=== PATIENT | male | born 1990 | race Caucasian/White ===

== ENCOUNTER 2023-03-04 15:49 | Emergency (ER) | payer BC ==
[~2023-03-04] VITALS: Ht 190 cm; Wt 107.0 kg
[2023-03-04 16:36] LABS: BASOPHILS % (AUTO) 0 % (0-10); EOSINOPHILS % (AUTO) 0 % (0-10); HEMATOCRIT 47 % (40-54); HEMOGLOBIN 16.8 g/dL (13.3-17.7); LYMPHOCYTES # (AUTO) 1.9 10^3/uL (1.0-4.0); LYMPHOCYTES % (AUTO) 19 % (12-44); MEAN CORPUSCULAR HEMOGLOBIN 30 pg (25-34); MEAN CORPUSCULAR HGB CONC 36 g/dL (32-36); MEAN CORPUSCULAR VOLUME 85 fL (80-99); MONOCYTES # (AUTO) 0.6 10^3/uL (0.0-1.0); MONOCYTES % (AUTO) 6 % (0-12); NEUTROPHILS # (AUTO) 7.5 10^3/uL (1.8-7.8); NEUTROPHILS % (AUTO) 74 % (42-75); PLATELET COUNT 214 10^3/uL (130-400); WHITE BLOOD COUNT 10.1 10^3/uL (4.3-11.0)
[2023-03-04 16:53] LABS: ALBUMIN 4.8 GM/DL (3.2-4.5); CHLORIDE 107 MMOL/L (98-107); POTASSIUM 3.8 MMOL/L (3.6-5.0); SODIUM 141 MMOL/L (135-145)
[2023-03-04 16:54] LABS: CALCIUM 9.9 MG/DL (8.5-10.1)
[2023-03-04 16:56] LABS: GLUCOSE 102 MG/DL (70-105); TOTAL PROTEIN 7.5 GM/DL (6.4-8.2)
[2023-03-04 16:57] LABS: CARBON DIOXIDE 20 MMOL/L (21-32)
[2023-03-04 16:59] LABS: ALKALINE PHOSPHATASE 61 U/L (40-136); CREATININE SERUM 0.97 MG/DL (0.60-1.30); GFR ESTIMATED 105
[2023-03-04 17:01] LABS: BUN/CREATININE RATIO 7
[2023-03-04 17:02] LABS: SALICYLATE < 5.0 MG/DL (5.0-20.0)
[2023-03-04 17:03] LABS: ACETAMINOPHEN < 10 UG/ML (10-30); ALANINE AMINOTRANSFERASE 12 U/L (0-55)
[2023-03-04 17:13] LABS: BILIRUBIN,URINE NEGATIVE (NEGATIVE); CLARITY,URINE CLEAR; COLOR,URINE YELLOW; GLUCOSE, URINE (UA) NEGATIVE (NEGATIVE); KETONES,URINE 3+ (NEGATIVE); NITRITE,URINE NEGATIVE (NEGATIVE); PH,URINE 6.5 (5-9); PROTEIN,URINE NEGATIVE (NEGATIVE)
[2023-03-04 17:14] LABS: AMPHETAMINE SCREEN, URINE NEGATIVE (NEGATIVE); BACTERIA,URINE NEGATIVE /HPF; BARBITURATE SCREEN URINE NEGATIVE (NEGATIVE); CANNABINOID SCREEN, URINE NEGATIVE (NEGATIVE); COCAINE SCREEN URINE NEGATIVE (NEGATIVE); LEUKOCYTE ESTERASE ,URINE NEGATIVE (NEGATIVE); METHADONE STAT NEGATIVE (NEGATIVE); OPIATE SCREEN URINE NEGATIVE (NEGATIVE); OXYCODONE STAT NEGATIVE (NEGATIVE); PROPOXYPHENE STAT NEGATIVE (NEGATIVE); TRICYCLIC ANTIDEPRESSANTS SCRE NEGATIVE (NEGATIVE); WBC,URINE RARE /HPF
[2023-03-04] MEDS ORDERED: LORazepam 0.5 MG TABLET PO ONE (17:15)
--- NOTE | 2023-03-04 18:16 | ED General ---
General Chief Complaint: Psych/Social Disorder Stated Complaint: PSYCH PROBLEMS Nursing Triage Note: TO TRIAGE WITH DAD. PT STATES HIS WANTS HIM IN A PSYCIATRIC HOLD. STARTING A COUPLE OF DAYS AGO PT HAS BEEN HAVING SEVERE PARANOIA AND IS SEEING PEOPLE. STATES THIS HAS NEVER HAPPENED BEFORE. PT ALSO STATES HE IS SLEEP DEPRIVED. PT DENIES THOUGHTS OF KILLING HIMSELF OR HARMING OTHERS BUT HE HAS HAD THOUGHTS IN THE PAST OF HARMING HIMSELF. PT WAS SEEN AT A [facility] YESTERDAY FOR THE SAME THING AND WAS SENT HOME. (JOSY HAHN DO) Allergies and Home Medications Allergies Coded Allergies: iodine (Verified Allergy, Severe, RASH, 03/04/23) Iodinated Contrast Media (Verified Allergy, Unknown, 03/04/23) Past Yzneknh-Xueixj-Gcyudg Hx Patient Social History Tobacco Use?: Yes Smoking Status: Current Everyday Smoker Substance use?: No Alcohol Use?: Yes Alcohol Frequency: Rarely (JOSY HAHN DO) Physical Exam Vital Signs Vital Signs - First Documented 03/04/23 16:00 Temp 36.3 Pulse 120 Resp 16 B/P (MAP) 138/99 (112) Pulse Ox 97 O2 Delivery Room Air () Vital Signs Capillary Refill : Less Than 3 Seconds (JOSY HAHN DO) Height, Weight, BMI Height: '" Weight: lbs. oz. kg; 29.00 BMI Method: (JOSY HAHN DO) Progress/Results/Core Measures Suspected Sepsis SIRS Temperature: Pulse: 120 Respiratory Rate: 16 Laboratory Tests 03/04/23 16:25: White Blood Count 10.1 Blood Pressure 138 /99 Mean: 112 Laboratory Tests 03/04/23 16:25: Creatinine 0.97, Platelet Count 214, Total Bilirubin 1.0 (JOSY HAHN DO) Results/Orders Lab Results Laboratory Tests Test 03/04/23 16:25 03/04/23 16:50 03/04/23 19:44 Range/Units White Blood Count 10.1 4.3-11.0 10^3/uL Red Blood Count 5.54 H 4.30-5.52 10^6/uL Hemoglobin 16.8 13.3-17.7 g/dL Hematocrit 47 40-54 % Mean Corpuscular Volume 85 80-99 fL Mean Corpuscular Hemoglobin 30 25-34 pg Mean Corpuscular Hemoglobin Concent 36 32-36 g/dL Red Cell Distribution Width 12.2 10.0-14.5 % Platelet Count 214 130-400 10^3/uL Mean Platelet Volume 10.0 9.0-12.2 fL Immature Granulocyte % (Auto) 1 % Neutrophils (%) (Auto) 74 42-75 % Lymphocytes (%) (Auto) 19 12-44 % Monocytes (%) (Auto) 6 0-12 % Eosinophils (%) (Auto) 0 0-10 % Basophils (%) (Auto) 0 0-10 % Neutrophils # (Auto) 7.5 1.8-7.8 10^3/uL Lymphocytes # (Auto) 1.9 1.0-4.0 10^3/uL Monocytes # (Auto) 0.6 0.0-1.0 10^3/uL Eosinophils # (Auto) 0.0 0.0-0.3 10^3/uL Basophils # (Auto) 0.0 0.0-0.1 10^3/uL Immature Granulocyte # (Auto) 0.1 0.0-0.1 10^3/uL Sodium Level 141 135-145 MMOL/L Potassium Level 3.8 3.6-5.0 MMOL/L Chloride Level 107 98-107 MMOL/L Carbon Dioxide Level 20 L 21-32 MMOL/L Anion Gap 14 5-14 MMOL/L Blood Urea Nitrogen 7 7-18 MG/DL Creatinine 0.97 0.60-1.30 MG/DL Estimat Glomerular Filtration Rate 105 BUN/Creatinine Ratio 7 Glucose Level 102 70-105 MG/DL Calcium Level 9.9 8.5-10.1 MG/DL Corrected Calcium 8.5-10.1 MG/DL Total Bilirubin 1.0 0.1-1.0 MG/DL Aspartate Amino Transf (AST/SGOT) 15 5-34 U/L Alanine Aminotransferase (ALT/SGPT) 12 0-55 U/L Alkaline Phosphatase 61 40-136 U/L Total Protein 7.5 6.4-8.2 GM/DL Albumin 4.8 H 3.2-4.5 GM/DL TSH [place] Testing 1.08 0.35-4.94 UIU/ML Salicylates Level < 5.0 L 5.0-20.0 MG/DL Acetaminophen Level < 10 L 10-30 UG/ML Serum Alcohol < 10 <10 MG/DL Syphilis Serology Non-Reactive Non-Reactive Urine Color YELLOW Urine Clarity CLEAR Urine pH 6.5 5-9 Urine Specific [place] 1.010 L 1.016-1.022 Urine Protein NEGATIVE NEGATIVE Urine Glucose (UA) NEGATIVE NEGATIVE Urine Ketones 3+ H NEGATIVE Urine Nitrite NEGATIVE NEGATIVE Urine Bilirubin NEGATIVE NEGATIVE Urine Urobilinogen 2.0 < = 1.0 MG/DL Urine Leukocyte Esterase NEGATIVE NEGATIVE Urine RBC (Auto) NEGATIVE NEGATIVE Urine RBC NONE /HPF Urine WBC RARE /HPF Urine Crystals NONE /LPF Urine Bacteria NEGATIVE /HPF Urine Casts NONE /LPF Urine Mucus SMALL H /LPF Urine Culture Indicated NO Urine Opiates Screen NEGATIVE NEGATIVE Urine Oxycodone Screen NEGATIVE NEGATIVE Urine Methadone Screen NEGATIVE NEGATIVE Urine Propoxyphene Screen NEGATIVE NEGATIVE Urine Barbiturates Screen NEGATIVE NEGATIVE Ur Tricyclic Antidepressants Screen NEGATIVE NEGATIVE Urine Phencyclidine Screen NEGATIVE NEGATIVE Urine Amphetamines Screen NEGATIVE NEGATIVE Urine Methamphetamines Screen NEGATIVE NEGATIVE Urine Benzodiazepines Screen NEGATIVE NEGATIVE Urine Cocaine Screen NEGATIVE NEGATIVE Urine Cannabinoids Screen NEGATIVE NEGATIVE Influenza Type A (RT-PCR) Not Detected Not Detecte Influenza Type B (RT-PCR) Not Detected Not Detecte SARS-CoV-2 RNA (RT-PCR) Not Detected Not Detecte Free Thyroxine 1.28 0.70-1.48 NG/DL () Vital Signs/I&O 03/04/23 03/05/23 03/05/23 16:00 03:45 07:10 Temp 36.3 36.6 36.4 Pulse 120 86 94 Resp 16 17 17 B/P (MAP) 138/99 (112) 148/103 (118) 126/84 Pulse Ox 97 98 98 O2 Delivery Room Air Room Air Room Air () Vital Signs/I&O Capillary Refill : Less Than 3 Seconds (JOSY HAHN DO) Blood Pressure Mean: 112 Progress Note : Progress Note 1800--ASSUMED CARE FROM DR. SCOTT, PT HAS BEEN CLEARED MEDICALLY, AND MENTAL HEALTH IS BEING CONTACTED FOR SCREEN (JOSY HAHN DO) Departure Departure-Patient Inst. Referrals: ANGELY CASTRO MD (PCP/Family) Primary Care Physician JOSY HAHN DO Mar 04, 2023 18:16 Mar 08, 2023 14:34
--- NOTE | 2023-03-04 18:20 | ED Psychosocial ---
General Chief Complaint: Psych/Social Disorder Stated Complaint: PSYCH PROBLEMS Nursing Triage Note: TO TRIAGE WITH DAD. PT STATES HIS WANTS HIM IN A PSYCIATRIC HOLD. STARTING A COUPLE OF DAYS AGO PT HAS BEEN HAVING SEVERE PARANOIA AND IS SEEING PEOPLE. STATES THIS HAS NEVER HAPPENED BEFORE. PT ALSO STATES HE IS SLEEP DEPRIVED. PT DENIES THOUGHTS OF KILLING HIMSELF OR HARMING OTHERS BUT HE HAS HAD THOUGHTS IN THE PAST OF HARMING HIMSELF. PT WAS SEEN AT A [facility] YESTERDAY FOR THE SAME THING AND WAS SENT HOME. Source: patient, family Exam Limitations: no limitations (JASS SCOTT MD) History of Present Illness Date Seen by Provider: Mar 04, 2023 Time Seen by Provider: 16:25 Initial Comments This 32-year-old gentleman presents to the emergency room via private means and is accompanied by his dad. He has been suffering from increasing anxiety and paranoia over the past 2 to 3 weeks. During that time he has missed approximately 2 weeks of work. 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 His took the 3 children and left home sometime in the last couple of days, presumably because of his mental health disturbances. She took the children to [place]. He is fairly evasive when asked about suicidal or homicidal ideology. He does not admit to being suicidal at this time. When asked about feelings of harming others, he reports that he could hurt his brother if he were present. He he has a long-term coarse relationship with his brother. Both patient and his dad (Steffen) denies any that he has had any prior history of mental health disturbances. He does not use any drugs or alcohol. He has not been previously medicated for any mental health conditions. He has had significant insomnia over the past few weeks. He has recently suffered hallucinations. For example, he thought he saw his coworkers walking to his house as they were driving to the emergency room. His father states no one was walking toward the home. He additionally believes messages are coming to him through the radio. He thought a message was meant for him stating that someone would kill him by 5:00 in the morning. He also saw a message from a Buddhism restorationist on the television yesterday and states that seem to be directed at him in identifying his struggles as a lind between heaven and hell. He is vague in describing these incidences. He has lost appetite. He states friends and family have noted that he has lost a significant amount of weight in the last couple of weeks. He seems rather paranoid and has a believe that someone may be trying to kill him. He therefore is not trusting when healthcare providers need to use needles or other invasive means. He also believes he may have an STI or urinary tract infection because he has had some dysuria recently. He did make threatening comments to the ER surgical instrument technician as she was drawing his blood. She was concerned enough that she immediately stopped her task and left the room. He has not been known to actually physically harm or threatening anyone previously. He seems to have moderate insight into his condition but seems to be struggling to sort out what is reality in his mind as we converse. There are long pauses before and during his responses as he processes questions. Father comments that patient is "not at all himself." Father also reports that the patient has been smoking excessively in recent days, up to 4 packs/day. Patient comments, "I have been smoking like a freODIN train." Patient denies any chronic medical problems or use of prescription medications. Patient's father attempted to have him evaluated at emergency room's in [place] yesterday. They made [address] [facility]. He was evaluated during 1 of those trips but did not complete the process through disposition. He did not stay for evaluation on an additional visit to [place]. 1856 - In a later conversation with patient's father, he elaborated more on the paranoia. He states Félix has felt like coworkers have been spying on him. Félix also started to disassemble his truck looking for a "spider bug" in the gas tank. He has also not been attending to usual affairs at home. For example, he has known the there is a nail and a flat tire of his vehicle for many days which she has not addressed. That is not typical behavior for him. Father also noted that Félix was very angry after speaking with his recently. He was shaking for this and making growling expressions. That behavior is also not usual for him. When they were on the way to the emergency room yesterday, Félix did not want his father to stop to get gas because of fear he would if he did not get to the ER by 5:00. Patient has expressed concern about his own wellbeing. He believes he needs help to restore relationship with his , work, etc. Steffen's (father's) phone number is [phone]. He also has Félix's 's number if that is needed. (JASS SCOTT MD) Allergies and Home Medications Allergies Coded Allergies: iodine (Verified Allergy, Severe, RASH, 03/04/23) Iodinated Contrast Media (Verified Allergy, Unknown, 03/04/23) Patient Home Medication List Home Medication List Reviewed: Yes (JASS SCOTT MD) Review of Systems Constitutional: no symptoms reported EENTM: no symptoms reported Respiratory: no symptoms reported Cardiovascular: no symptoms reported Gastrointestinal: no symptoms reported Genitourinary: no symptoms reported Musculoskeletal: no symptoms reported Skin: no symptoms reported Psychiatric/Neurological: See HPI, Anxiety, Other (Insomnia, hallucinations) (JASS SCOTT MD) Past Vmwzaxf-Wpufgt-Hsjzrm Hx Patient Social History Tobacco Use?: Yes Tobacco type used: Cigarettes Smoking Status: Current Everyday Smoker Substance use?: No Alcohol Use?: Yes Alcohol Frequency: Rarely (JASS SCOTT MD) Past Medical History Surgeries: Yes Orthopedic (Right femur fracture) Respiratory: No Cardiac: No Neurological: No Genitourinary: No Gastrointestinal: No Musculoskeletal: No HEENT: No Cancer: No Psychosocial: No Integumentary: No (JASS SCOTT MD) Physical Exam Vital Signs - First Documented 03/04/23 16:00 Temp 36.3 Pulse 120 Resp 16 B/P (MAP) 138/99 (112) Pulse Ox 97 O2 Delivery Room Air (SELMA,JOSY K DO) Capillary Refill : Less Than 3 Seconds (JASS SCOTT MD) Height, Weight, BMI Height: '" Weight: lbs. oz. kg; 29.00 BMI Method: General Appearance: WD/WN, other (Seems mildly anxious) HEENT: PERRL/EOMI, normal ENT inspection Neck: normal inspection Respiratory: lungs clear, normal breath sounds, no respiratory distress Cardiovascular: no edema, no murmur, tachycardia Gastrointestinal: normal bowel sounds, soft Extremities: normal inspection, no pedal edema Neurologic/Psychiatric: pharmaceutical sales specialist II-XII nml as tested, no motor/sensory deficits, alert, oriented x 3 Appearance/Memory: appropriate appearance, impaired insight (Insight mildly impaired) Behavior/Eye Contact: cooperative, avoids eye contact Thoughts/Hallucinations: delusions, paranoid, visual hallucinations Skin: normal color, warm/dry (JASS SCOTT MD) Progress/Results/Core Measures Results/Orders Lab Results Laboratory Tests Test 03/04/23 16:25 03/04/23 16:50 03/04/23 19:44 Range/Units White Blood Count 10.1 4.3-11.0 10^3/uL Red Blood Count 5.54 H 4.30-5.52 10^6/uL Hemoglobin 16.8 13.3-17.7 g/dL Hematocrit 47 40-54 % Mean Corpuscular Volume 85 80-99 fL Mean Corpuscular Hemoglobin 30 25-34 pg Mean Corpuscular Hemoglobin Concent 36 32-36 g/dL Red Cell Distribution Width 12.2 10.0-14.5 % Platelet Count 214 130-400 10^3/uL Mean Platelet Volume 10.0 9.0-12.2 fL Immature Granulocyte % (Auto) 1 % Neutrophils (%) (Auto) 74 42-75 % Lymphocytes (%) (Auto) 19 12-44 % Monocytes (%) (Auto) 6 0-12 % Eosinophils (%) (Auto) 0 0-10 % Basophils (%) (Auto) 0 0-10 % Neutrophils # (Auto) 7.5 1.8-7.8 10^3/uL Lymphocytes # (Auto) 1.9 1.0-4.0 10^3/uL Monocytes # (Auto) 0.6 0.0-1.0 10^3/uL Eosinophils # (Auto) 0.0 0.0-0.3 10^3/uL Basophils # (Auto) 0.0 0.0-0.1 10^3/uL Immature Granulocyte # (Auto) 0.1 0.0-0.1 10^3/uL Sodium Level 141 135-145 MMOL/L Potassium Level 3.8 3.6-5.0 MMOL/L Chloride Level 107 98-107 MMOL/L Carbon Dioxide Level 20 L 21-32 MMOL/L Anion Gap 14 5-14 MMOL/L Blood Urea Nitrogen 7 7-18 MG/DL Creatinine 0.97 0.60-1.30 MG/DL Estimat Glomerular Filtration Rate 105 BUN/Creatinine Ratio 7 Glucose Level 102 70-105 MG/DL Calcium Level 9.9 8.5-10.1 MG/DL Corrected Calcium 8.5-10.1 MG/DL Total Bilirubin 1.0 0.1-1.0 MG/DL Aspartate Amino Transf (AST/SGOT) 15 5-34 U/L Alanine Aminotransferase (ALT/SGPT) 12 0-55 U/L Alkaline Phosphatase 61 40-136 U/L Total Protein 7.5 6.4-8.2 GM/DL Albumin 4.8 H 3.2-4.5 GM/DL TSH [place] Testing 1.08 0.35-4.94 UIU/ML Salicylates Level < 5.0 L 5.0-20.0 MG/DL Acetaminophen Level < 10 L 10-30 UG/ML Serum Alcohol < 10 <10 MG/DL Urine Color YELLOW Urine Clarity CLEAR Urine pH 6.5 5-9 Urine Specific [place] 1.010 L 1.016-1.022 Urine Protein NEGATIVE NEGATIVE Urine Glucose (UA) NEGATIVE NEGATIVE Urine Ketones 3+ H NEGATIVE Urine Nitrite NEGATIVE NEGATIVE Urine Bilirubin NEGATIVE NEGATIVE Urine Urobilinogen 2.0 < = 1.0 MG/DL Urine Leukocyte Esterase NEGATIVE NEGATIVE Urine RBC (Auto) NEGATIVE NEGATIVE Urine RBC NONE /HPF Urine WBC RARE /HPF Urine Crystals NONE /LPF Urine Bacteria NEGATIVE /HPF Urine Casts NONE /LPF Urine Mucus SMALL H /LPF Urine Culture Indicated NO Urine Opiates Screen NEGATIVE NEGATIVE Urine Oxycodone Screen NEGATIVE NEGATIVE Urine Methadone Screen NEGATIVE NEGATIVE Urine Propoxyphene Screen NEGATIVE NEGATIVE Urine Barbiturates Screen NEGATIVE NEGATIVE Ur Tricyclic Antidepressants Screen NEGATIVE NEGATIVE Urine Phencyclidine Screen NEGATIVE NEGATIVE Urine Amphetamines Screen NEGATIVE NEGATIVE Urine Methamphetamines Screen NEGATIVE NEGATIVE Urine Benzodiazepines Screen NEGATIVE NEGATIVE Urine Cocaine Screen NEGATIVE NEGATIVE Urine Cannabinoids Screen NEGATIVE NEGATIVE Influenza Type A (RT-PCR) Not Detected Not Detecte Influenza Type B (RT-PCR) Not Detected Not Detecte SARS-CoV-2 RNA (RT-PCR) Not Detected Not Detecte Free Thyroxine 1.28 0.70-1.48 NG/DL (SELMA,JOSY K DO) My Orders Orders - SELMA,JOSY K DO Lorazepam Tablet (Lorazepam Tablet) (03/04/23 21:43) Acetaminophen Tablet (Acetaminophen Ta (03/05/23 00:00) (JOSY WILSON ) Medications Given in ED Current Medications Medications Dose Ordered Sig/Sandra Route Start Time Stop Time Status Last Admin Dose Admin Acetaminophen 1,000 mg ONCE ONCE PO 03/05/23 00:00 03/05/23 00:01 DC 03/04/23 23:58 1,000 MG Lorazepam 0.5 mg ONCE ONCE PO 03/04/23 17:15 03/04/23 17:16 DC 03/04/23 17:23 0.5 MG (JOSY WILSON DO) Vital Signs/I&O 03/04/23 16:00 Temp 36.3 Pulse 120 Resp 16 B/P (MAP) 138/99 (112) Pulse Ox 97 O2 Delivery Room Air (JOSY WILSON DO) Blood Pressure Mean: 112 Progress Progress Note #1: Time: 18:10 Progress Note I reviewed nursing triage and chief complaint and received report from nurses at 1625 and placed orders. I was in the exam room at 1654 to evaluate the patient. I interviewed both the patient and his father. The psychiatric lab panel was obtained, reviewed, and interpreted by me. CBC and CMP were unremarkable. TSH is pending at this time. Urinalysis was unremarkable except for 3+ ketones. Toxicology screen was negative. Serum alcohol, acetaminophen, and salicylate were all negative. The influenza and COVID swab was also negative. Patient requires a behavioral health screening. He has been quite anxious and there is concern about elopement. He presented to ER's 3 times yesterday and did not stay for any of them through the discharge process. Care of this patient is now being transitioned to Dr. Wilson while awaiting a behavioral health screening. There is some concern for possible elopement, so Ativan was offered to help him be calm while he awaits work-up and disposition. Patient was agreeable to Ativan. 0.5 mg Ativan orally was ordered. Progress Note #2: Time: 06:52 Progress Note Transfer has been arranged to [facility] in [place], [place]. Patient has b een very hesitant. He is paranoid about leaving the [facility]. I have given him much reassurance about this transfer. I have reminded him numerous times that this entire arrangement is a voluntary and that we have no authority to force him to take any action. He has expressed a strong desire to resolve his mental health issues for the good of himself and his family. I have reminded him of these desires. He reviewed the transfer consent form carefully and eventually signed to consent transfer. I have offered medication to help him with anxiety of transfer, but he has not requested to receive any medication yet. He has been on the phone with his father who seems to affirm the decision. I have reviewed the TSH and free T4 drawn yesterday evening. They were both normal. The only pending lab is the syphilis antibody. Progress Note #3: Progress Note Patient received Ativan 1 mg PO before transfer at his request. (JASS SCOTT MD) Progress Note : Progress Note 1800--ASSUMED CARE FROM DR. SCOTT, PT HAS BEEN CLEARED MEDICALLY, MENTAL HEALTH IS NOW BEING CONTACTED FOR SCREEN. 1924--MENTAL HEALTH SCREEN COMPLETED. 1999--HAVE BEEN INFORMED THAT MENTAL HEALTH IS CURRENTLY ATTEMPTING TO FIND PLACEMENT FOR PT--HE IS VOLUNTARY AT THIS TIME 2042--PT WANTING SOMETHING FOR ANXIETY. ATIVAN ORDERED. 2349--C/O HEADACHE, TYLENOL ORDERED 012--RN [facility] CON[facility]CTED [facility], PT HAS BEEN ACCEPTED AT [facility], [place], BY DR. MONAE AT 0135 [facility] HAS BEEN CONTACTED FOR TRANSPORT, HE WILL BE HERE AT 0700 (JOSY WILSON DO) Initial ECG Impression Date: Mar 04, 2023 Initial ECG Impression Time: 17:27 Initial ECG Rate: 112 Initial ECG Rhythm: S.Tach Comment Sinus tachycardia with no ST elevation or depression. No abnormal intervals or axis deviation. (JASS SCOTT MD) Departure Impression Primary Impression: Paranoia Additional Impressions: Insomnia Qualified Codes: G47.00 - Insomnia, unspecified Hallucinations Anxiety Psychosis Qualified Codes: F29 - Unspecified psychosis not due to a substance or known physiological condition Disposition: 65 XFER TO PSYCH HOSP/UNIT Condition: Stable Transfer Transfer Time: 07:10 (JASS SCOTT MD) Transfer Reason: Exceeds level of care (INPATIENT PSYCH UNAVAILABLE HERE) Transfer Facility: [place], [place] Method of Transfer: Private Vehicle ([facility]) (JOSY WILSON DO) Departure-Patient Inst. Referrals: ANGELY CASTRO MD (PCP/Family) Primary Care Physician JASS SCOTT MD Mar 04, 2023 18:20 JOSY WILSON DO Mar 04, 2023 19:27
[2023-03-04 20:25] LABS: TSH (THYROID ANALYZER) 1.08 UIU/ML (0.35-4.94)
[2023-03-04] MEDS ORDERED: LORazepam 0.5 MG TABLET PO STA (21:43)
[2023-03-05] MEDS ORDERED: ACETAMINOPHEN 500 MG TABLET PO ONE
[2023-03-05] MEDS ORDERED: LORazepam 0.5 MG TABLET PO STA (07:09)
[2023-03-05 07:10] VITALS: BP 126/84
== END 2023-03-05 07:10 ==
LOC: ER 15:55
DX: F22 Delusional disorders (principal); F51.05 Insomnia due to other mental disorder; F41.9 Anxiety disorder, unspecified; R00.0 Tachycardia, unspecified; F17.210 Nicotine dependence, cigarettes, uncomplicated; Z11.52 Encounter for screening for COVID-19
CPT/HCPCS: 36415; 80053; 80306; 80320; 80329; 81000; 84439; 84443; 85025; 86780; 87636; 93005